=== PATIENT | female | born 1980 | race Caucasian/White ===

== ENCOUNTER 2017-04-02 05:40 | Outpatient (CLI) | payer OTHER ==
[~2017-04-02] VITALS: Ht 165.1 cm; Wt 103.4 kg
[2017-04-02] MEDS ORDERED: ZOLP10TA PO (15:30)
[2017-04-02] MEDS ORDERED: HYDR-3816 PO (15:30)
[2017-04-02] MEDS ORDERED: TIZA4CAP8 PO (15:30)
== END 2017-04-02 15:47 ==
LOC: PREOP 05:40 → EDUNIT# 14:45 → PREOP 15:47
PROVIDERS: ATTEND Otolaryngology Otolaryngology/Facial Plastic Surgery
DX: Z01.818 Encounter for other preprocedural examination (principal); J35.01 Chronic tonsillitis

== ENCOUNTER 2017-04-06 07:40 | Day surgery (SDC) | payer OTHER ==
[~2017-04-06] VITALS: Ht 165.1 cm; Wt 103.4 kg
[~2017-04-06 07:40] MED LIST: HYDR-3816 PO; TIZA4CAP8 PO; ZOLP10TA PO
[2017-04-06 08:05] VITALS: BP 142/101
[2017-04-06] MEDS ORDERED: LACTATED RINGERS 1,000 ML IV PRN (08:28)
[2017-04-06 08:37] LABS: CALCIUM 9.1 MG/DL (8.5-10.1); CREATININE SERUM 3.25 MG/DL (0.60-1.30)
[2017-04-06] MEDS ORDERED: MIDAZOLAM 2 MG/2 ML (VERSED) VIAL IV ONE (09:00)
--- NOTE | 2017-04-06 09:36 | Progress Note-Pre Operative ---
Pre-Operative Progress Note H&P Reviewed The H&P was reviewed, patient examined and no changes noted. Date Seen by Provider: Apr 06, 2017 Time Seen by Provider: 09:00 Date H&P Reviewed: Apr 06, 2017 Time H&P Reviewed: 09:00 Pre-Operative Diagnosis: Tonsilalr Hypertrophy, Chronic Tonsillitis WILLIE DE LA ROSA MD Apr 06, 2017 9:36 am
[2017-04-06] MEDS ORDERED: proPOfol 200 MG/20 ML (DIPRIVAN) VIAL IV ONE (09:40)
[2017-04-06] MEDS ORDERED: SEVOFLURANE (ULTANE) 15 ML INHAL SOLN ONE ×2 (09:40→09:50)
[2017-04-06] MEDS ORDERED: fentaNYL INJECTION 100 MCG/2 ML AMP ONE (09:40)
[2017-04-06] MEDS ORDERED: ONDANSETRON 4 MG/2 ML (SDV) Z0FRAN ONE (09:40)
[2017-04-06] MEDS ORDERED: DEXAMETHASONE 10 MG/ML (DECADRON) 1 ML VIAL ONE ×16 (09:40→10:28)
[2017-04-06] MEDS ORDERED: morphine INJ 10 MG/ML 1ML (SYR OR VIAL) ONE ×2 (10:06→10:37)
[2017-04-06] MEDS ORDERED: ONDANSETRON 4 MG/2 ML (SDV) Z0FRAN IVP PRN (10:15)
[2017-04-06] MEDS ORDERED: NS IV 1000 ML 1,000 ML IV SCH (10:26)
--- NOTE | 2017-04-06 10:26 | Progress Note-Post Operative ---
Post-Operative Progess Note Surgeon (s)/Association Executive (s) Surgeon WILLIE DE LA ROSA MD [employer] Executive n/a Pre-Operative Diagnosis Tonsilalr Hypertrophy, Chronic Tonsillitis Post-Operative Diagnosis same Post-Op Procedure Note Date of Procedure: Apr 06, 2017 Name of Procedure Performed: Tonsillectomy Description & Findings Description and Findings: n/a Anesthesia Type get Estimated Blood Loss minimal Packing none. Specimen(s) collected/removed tonsils WILLIE DE LA ROSA MD Apr 06, 2017 10:26 am
[2017-04-06] MEDS ORDERED: APAP 325 MG/10.15 ML LIQ (TYLENOL) UDC PO PRN (10:30)
[2017-04-06] MEDS ORDERED: oxyCODONE 5 MG/5 ML ORAL SOLN (roxiCODONE) 5 ML UDC PO PRN (10:30)
[2017-04-06] MEDS: morphine INJ 10 MG/ML 1ML (SYR OR VIAL) IVP PRN ×2 (10:46→10:51)
[2017-04-06] MEDS ORDERED: MEPERIDINE (DEMEROL) INJ 50 MG/ML ONE (11:09)
[2017-04-06] MEDS: MEPERIDINE (DEMEROL) INJ 50 MG/ML IVP PRN ×2 (11:10→11:20)
[2017-04-06 11:45] VITALS: BP 125/87
[2017-04-06] MEDS ORDERED: APAP 325 MG/10.15 ML LIQ (TYLENOL) UDC ONE (12:08)
[2017-04-06 12:15] VITALS: BP 110/86
[2017-04-06 12:45] VITALS: BP 122/97
[2017-04-06] MEDS ORDERED: OXYC500S3 PO (13:10)
[2017-04-06] MEDS ORDERED: TETRACAINESUCKERS MT (13:10)
[2017-04-06] MEDS ORDERED: DEXAINTSOL PO (13:10)
[2017-04-06] MEDS ORDERED: AMOX250S5 PO (13:10)
[2017-04-06 14:20] VITALS: BP 122/97
[2017-04-06 14:30] VITALS: BP 122/97
== END 2017-04-06 14:30 | disposition home or self-care (01) ==
LOC: SDC 07:40
PROVIDERS: ATTEND Otolaryngology Otolaryngology/Facial Plastic Surgery
DX: J35.01 Chronic tonsillitis (principal); N18.6 End stage renal disease; G43.909 Migraine, unspecified, not intractable, without status migrainosus; Z68.37 Body mass index [BMI] 37.0-37.9, adult; Z79.899 Other long term (current) drug therapy
CPT/HCPCS: 36415; 80048; 84703; 87081